=== PATIENT | male | born 1995 | race African-American/Black ===

== ENCOUNTER 2016-10-11 00:47 | Emergency (ER) | payer BC, MEDICAID ==
[~2016-10-11] VITALS: Ht 162.6 cm; Wt 63.0 kg
[2016-10-11] MEDS ORDERED: TETANUS, DIPHTHERIA, PERTUSSIS VAC/PF 0.5ML (>7YR OLD) IM ONE (05:30)
[2016-10-11] MEDS ORDERED: BACITRACIN ZINC OINT UDPKT TOP ONE (05:30)
[2016-10-11] MEDS ORDERED: LIDOCAINE HCL 1%/EPI 1:200,000 30 ML VIAL MC ONE (05:30)
[2016-10-11] MEDS ORDERED: IBUPROFEN 600MG TABLET PO ONE (05:30)
[2016-10-11 08:00] VITALS: BP 112/56
== END 2016-10-11 08:21 | disposition home or self-care (01) ==
LOC: ER 00:47
DX: S01.111A Laceration without foreign body of right eyelid and periocular area, initial encounter (principal); F17.210 Nicotine dependence, cigarettes, uncomplicated; F12.10 Cannabis abuse, uncomplicated; Y00.XXXA Assault by blunt object, initial encounter; Y93.89 Activity, other specified; Y92.018 Other place in single-family (private) house as the place of occurrence of the external cause
CPT/HCPCS: 12011; 70486; 90471; 90715; 99284; A4217; X7700; Z7610

== ENCOUNTER 2016-10-16 08:55 | Emergency (ER) | payer BC, MEDICAID ==
[~2016-10-16] VITALS: Ht 167.6 cm; Wt 67.0 kg
[2016-10-16 09:23] VITALS: BP 100/59
== END 2016-10-16 10:36 | disposition home or self-care (01) ==
LOC: ER 10:28
DX: S01.81XD Laceration without foreign body of other part of head, subsequent encounter (principal); R03.0 Elevated blood-pressure reading, without diagnosis of hypertension; F17.200 Nicotine dependence, unspecified, uncomplicated; F12.10 Cannabis abuse, uncomplicated; Y08.89XD Assault by other specified means, subsequent encounter; Y92.89 Other specified places as the place of occurrence of the external cause; Y99.8 Other external cause status
CPT/HCPCS: 99281

== ENCOUNTER 2016-10-20 09:32 | Emergency (ER) | payer BC, MEDICAID ==
[~2016-10-20] VITALS: Ht 167.6 cm; Wt 66.0 kg
[2016-10-20 09:43] VITALS: BP 105/59
== END 2016-10-20 13:54 | disposition home or self-care (01) ==
LOC: ER 13:50
DX: Z48.02 Encounter for removal of sutures (principal)
CPT/HCPCS: 99281; Z7610